=== PATIENT | male | born 1980 | race Hispanic/Latino ===

== ENCOUNTER 2016-11-21 23:56 | Emergency (ER) | payer MEDICAID ==
[2016-11-21 23:56] VITALS: BMI 28.8
[2016-11-22 00:04] VITALS: O2SAT 99
[2016-11-22 00:33] LABS: BASO # 0.1 K/uL (0.0-0.2); EOS # 0.1 K/uL (0.0-0.7); EOS % 0.9 % (0.0-4.0); HEMATOCRIT 39.5 % (35.0-51.0); LYMPH # 2.3 K/uL (1.0-4.3); LYMPH % 22.5 % (20.0-40.0); MEAN CELL VOLUME 88.6 fl (80.0-94.0); MEAN CORPUSCULAR HGB CONC 32.7 g/dL (33.0-37.0); MEAN PLATELET VOLUME 7.6 fl (7.2-11.7); MONO # 0.6 K/uL (0.0-0.8); MONO % 5.7 % (0.0-10.0); NEUT # 7.1 K/uL (1.8-7.0); NEUT % 69.9 % (50.0-75.0); RED CELL DISTRIBUTION WIDTH 14.3 % (11.5-14.5); WHITE BLOOD COUNT 10.2 K/uL (4.8-10.8)
[2016-11-22 00:42] LABS: ALB/GLOB RATIO 1.2 (1.0-2.1); ALCOHOL SERUM 22 mg/dl (0-10); ALKALINE PHOSPHATASE 79 U/L (38-126); ALT/SGPT 33 U/L (21-72); AST/SGOT 30 U/L (17-59); BILIRUBIN,TOTAL 0.4 mg/dl (0.2-1.3); BLOOD UREA NITROGEN 10 mg/dl (9-20); CALCIUM 9.9 mg/dL (8.4-10.2); CARBON DIOXIDE 22 mmol/L (22-30); CHLORIDE 105 mmol/L (98-107); GFR AFRICAN-AMERICAN > 60; GLUCOSE,RANDOM 89 mg/dL (75-110); POTASSIUM 3.9 MMOL/L (3.6-5.0); SODIUM 142 mmol/l (132-148); TOTAL PROTEIN 8.7 G/DL (6.3-8.2)
--- NOTE | 2016-11-22 01:45 | ED PDOC ---
HPI: Psych/Substance Abuse Time Seen by Provider: 11/22/16 00:04 Chief Complaint (Nursing): Substance Abuse Chief Complaint (Provider): Substance Abuse ED Caveat: Other (Substance abuse) History Per: Patient History/Exam Limitations: clinical condition (Substance abuse) Current Symptoms Are (Timing): Still Present Additional Complaint(s): Maximo Lizama, a 36 year old male patient, presents to the ED for substance abuse. The patient is well known to the ED and provider for substance abuse (PCP). History is limited due to patient's intoxicated state. Past Medical History Reviewed: Historical Data, Nursing Documentation, Vital Signs, Unable To Obtain (due to intoxicated state ) Vital Signs: Last Vital Signs Temp 97.8 F 11/22/16 00:00 Pulse 108 H 11/22/16 00:00 Resp 17 11/22/16 00:00 BP 149/86 11/22/16 00:00 Pulse Ox 99 11/22/16 00:00 - Medical History PMH: Asthma, Migraine - Family History Family History: States: Unknown Family Hx - Social History Drugs: Other (hx of PCP abuse ) - Immunization History Hx Tetanus Toxoid Vaccination: Yes - Home Medications Home Medications: Ambulatory Orders Medication Instructions Recorded Docusate [Colace] 100 mg PO BID #10 cap 04/13/16 Magnesium Citrate [Citrate of Mag] 8 oz PO DAILY PRN #1 bottle 04/13/16 - Allergies Allergies/Adverse Reactions: Allergies Allergy/AdvReac Type Severity Reaction Status Date / Time FISH Allergy SWELLING Verified 11/22/16 00:04 Fish Containing Products Allergy SWELLING Verified 11/22/16 00:04 fish derived Allergy SWELLING Verified 11/22/16 00:04 seafood Allergy SWELLING Uncoded 11/22/16 00:04 Review of Systems Review Of Systems: ROS cannot be obtained secondary to pt's inabilty to answer questions. (due to intoxication) Physical Exam - Reviewed Nursing Documentation Reviewed: Yes Vital Signs Reviewed: Yes - Physical Exam Appears: Positive for: Well, Non-toxic, No Acute Distress Head Exam: Positive for: ATRAUMATIC, NORMAL INSPECTION, NORMOCEPHALIC Skin: Positive for: Normal Color, Warm, Dry Eye Exam: Positive for: Normal appearance, EOMI, PERRL ENT: Positive for: Normal ENT Inspection Neck: Positive for: Normal, Painless ROM, Supple Cardiovascular/Chest: Positive for: Regular Rate, Rhythm. Negative for: Tachycardia Respiratory: Positive for: Normal Breath Sounds. Negative for: Wheezing, Respiratory Distress Gastrointestinal/Abdominal: Positive for: Normal Exam, Soft. Negative for: Tenderness Back: Positive for: Normal Inspection Extremity: Positive for: Normal ROM Neurologic/Psych: Positive for: Alert, Oriented - Laboratory Results Result Diagrams: 11/22/16 00:30 11/22/16 00:30 - ECG O2 Sat by Pulse Oximetry: 99 (RA) Pulse Ox Interpretation: Normal Medical Decision Making Medical Decision Makin Initial Impression: 36 year old male presents for evaluation of substance abuse Initial Plan: * Alcohol serum * CMP * Drug screen * CBC * Accucheck 0330 Patient is clinically sober and stable for discharge home. Dx: PCP abuse Condition: Stable Scribe Attestation Documented by Sayra barrios under Mikael Gallardo acting as a scribe for Kareen Camarillo MD. Provider Attestation: All medical record entries made by the Scribe were at my direction and personally dictated by me. I have reviewed the chart and agree that the record accurately reflects my personal performance of the history, physical exam, medical decision making, and the department course for this patient. I have also personally directed, reviewed, and agree with the discharge instructions and disposition. Disposition - Clinical Impression Clinical Impression: PCP (phencyclidine) abuse - Disposition Disposition: Routine/Home Disposition Time: 03:30 Condition: STABLE Instructions: Polysubstance Abuse (ED)
[2016-11-22 04:05] VITALS: BP 114/76; PULSE 71; RESP 14; TEMP 97
== END 2016-11-22 04:30 | disposition home or self-care (01) ==
LOC: H.ER 23:56
DX: F16.10 Hallucinogen abuse, uncomplicated (principal)

== ENCOUNTER 2017-01-03 04:31 | Emergency (ER) | payer MEDICAID ==
[2017-01-03 04:32] VITALS: BMI 28.8
[2017-01-03 04:49] VITALS: BP 124/73; PULSE 88; RESP 18; TEMP 97.8; O2SAT 97
--- NOTE | 2017-01-03 04:59 | ED PDOC ---
HPI: General Adult Time Seen by Provider: 01/03/17 04:47 Chief Complaint (Nursing): Dizziness/Lightheaded Chief Complaint (Provider): "don't feel right" History Per: Patient History/Exam Limitations: no limitations Onset/Duration Of Symptoms: Hrs Current Symptoms Are (Timing): Still Present Additional History Per: Patient Additional Complaint(s): 36 y/o male presents to ED with complaints of "not feeling right" x 2 hours. Patient states he was exercising when he started to feel lightheaded and generally weak. He also notes frontal headache. Denies fever, dizziness, extremity numbness/weakness, vision changes, nausea/vomiting, chest pain, shortness of breath, palpitations, abdominal pain. Patient admits to drinking earlier today, denies drug use. Past Medical History Reviewed: Historical Data, Nursing Documentation, Vital Signs Vital Signs: Last Vital Signs Temp 97.8 F 01/03/17 04:46 Pulse 88 01/03/17 04:46 Resp 18 01/03/17 04:46 BP 124/73 01/03/17 04:46 Pulse Ox 97 01/03/17 05:47 - Medical History PMH: Asthma, Migraine - Surgical History Surgical History: No Surg Hx - Family History Family History: States: Unknown Family Hx - Social History Current smoker - smoking cessation education provided: Yes Alcohol: Occasional Drugs: Denies - Immunization History Hx Tetanus Toxoid Vaccination: Yes - Home Medications Home Medications: Ambulatory Orders Medication Instructions Recorded Docusate [Colace] 100 mg PO BID #10 cap 04/13/16 Magnesium Citrate [Citrate of Mag] 8 oz PO DAILY PRN #1 bottle 04/13/16 - Allergies Allergies/Adverse Reactions: Allergies Allergy/AdvReac Type Severity Reaction Status Date / Time FISH Allergy SWELLING Verified 11/22/16 00:04 Fish Containing Products Allergy SWELLING Verified 11/22/16 00:04 fish derived Allergy SWELLING Verified 11/22/16 00:04 seafood Allergy SWELLING Uncoded 11/22/16 00:04 Review of Systems ROS Statement: Except As Marked, All Systems Reviewed And Found Negative Constitutional: Positive for: Weakness Neurological: Positive for: Headache Physical Exam - Reviewed Nursing Documentation Reviewed: Yes Vital Signs Reviewed: Yes - Physical Exam Appears: Positive for: Well, Non-toxic, No Acute Distress Head Exam: Positive for: ATRAUMATIC, NORMAL INSPECTION, NORMOCEPHALIC Skin: Positive for: Normal Color Eye Exam: Positive for: Normal appearance, EOMI, PERRL ENT: Positive for: Normal ENT Inspection Cardiovascular/Chest: Positive for: Regular Rate, Rhythm Respiratory: Positive for: Normal Breath Sounds Gastrointestinal/Abdominal: Positive for: Normal Exam Back: Positive for: Normal Inspection Extremity: Positive for: Normal ROM Neurologic/Psych: Positive for: Alert, Oriented - Laboratory Results Result Diagrams: 01/03/17 05:10 01/03/17 05:10 - ECG ECG: Positive for: Viewed By Me (reviewed by ED attending) ECG Rhythm: Positive for: Sinus Rhythm O2 Sat by Pulse Oximetry: 97 Pulse Ox Interpretation: Normal - Progress ED Course And Treament: labs, ekg, accucheck, tyleol PO accucheck 65; patient given sandwich, juice On re-eval, patient states he is feeling better. Patient educated on findings, discharged with instructions to follow up PMD. Tylenol PRN pain. Return to ED for worsening/concerning symptoms. Disposition - Clinical Impression Clinical Impression: Hypoglycemia, Polysubstance abuse, Headache - Patient ED Disposition Is Patient to be Admitted: No Counseled Patient/Family Regarding: Studies Performed, Diagnosis, Need For Followup - Disposition Referrals: Alexey Mann MD [Primary Care Provider] - Disposition: Routine/Home Disposition Time: 06:34 Condition: IMPROVED Instructions: Non-diabetic Hypoglycemia (ED), Acute Headache (ED), Polysubstance Abuse (ED)
[2017-01-03 05:26] LABS: BASO % 0.3 % (0.0-2.0); EOS % 0.3 % (0.0-4.0); HEMATOCRIT 39.9 % (35.0-51.0); LYMPH # 1.9 K/uL (1.0-4.3); LYMPH % 15.8 % (20.0-40.0); MEAN CELL VOLUME 88.6 fl (80.0-94.0); MEAN CORPUSCULAR HEMOGLOBIN 28.7 pg (27.0-31.0); MEAN CORPUSCULAR HGB CONC 32.3 g/dL (33.0-37.0); MEAN PLATELET VOLUME 7.6 fl (7.2-11.7); MONO # 0.7 K/uL (0.0-0.8); MONO % 5.5 % (0.0-10.0); NEUT # 9.3 K/uL (1.8-7.0); NEUT % 78.1 % (50.0-75.0); RED CELL DISTRIBUTION WIDTH 13.9 % (11.5-14.5); WHITE BLOOD COUNT 11.9 K/uL (4.8-10.8)
[2017-01-03 05:38] LABS: ALCOHOL SERUM 10 mg/dl (0-10); ALKALINE PHOSPHATASE 66 U/L (38-126); ALT/SGPT 32 U/L (21-72); AST/SGOT 29 U/L (17-59); BILIRUBIN,TOTAL 0.3 mg/dl (0.2-1.3); BLOOD UREA NITROGEN 11 mg/dl (9-20); CALCIUM 9.6 mg/dL (8.4-10.2); CARBON DIOXIDE 21 mmol/L (22-30); CHLORIDE 108 mmol/L (98-107); GFR AFRICAN-AMERICAN > 60; GLUCOSE,RANDOM 59 mg/dL (75-110); SODIUM 144 mmol/l (132-148); TOTAL PROTEIN 8.6 G/DL (6.3-8.2)
[2017-01-03 05:40] LABS: ALB/GLOB RATIO 1.5 (1.0-2.1)
--- NOTE | 2017-01-03 13:18 | CARD ---
APPROVED REPORT EKG Measurement Heart [id number] <Conclusion> Normal sinus rhythm Normal ECG
== END 2017-01-03 06:35 | disposition home or self-care (01) ==
LOC: H.ER 04:31
DX: E16.2 Hypoglycemia, unspecified (principal); F19.10 Other psychoactive substance abuse, uncomplicated; R51 Headache

== ENCOUNTER 2017-02-23 22:03 | Emergency (ER) | payer MEDICAID ==
[2017-02-23 22:03] VITALS: BMI 28.8
[2017-02-23 22:11] VITALS: BP 136/91; PULSE 84; RESP 16; TEMP 98.4; O2SAT 97
--- NOTE | 2017-02-23 22:40 | ED PDOC ---
HPI: Psych/Substance Abuse Time Seen by Provider: 02/23/17 22:28 Chief Complaint (Nursing): Substance Abuse Chief Complaint (Provider): Alcohol Intoxication History Per: EMS History/Exam Limitations: intoxication Additional Complaint(s): Maximo Lizama is a 36 y/o male, brought in by EMS, presenting to the ER on with alcohol intoxication. History obtained per EMS. Per EMS, patient was found visibly intoxicated on the streets. Upon arrival, he has alcohol on his breath with an unsteady gait. Offers no medical complaints at this time. Rest of HPI/ROS is limited due to the patient's state of intoxication. Past Medical History Reviewed: Historical Data, Nursing Documentation, Vital Signs Vital Signs: Last Vital Signs Temp 98.4 F 02/23/17 22:10 Pulse 84 02/23/17 22:10 Resp 16 02/23/17 22:10 BP 136/91 H 02/23/17 22:10 Pulse Ox 97 02/23/17 22:10 - Medical History PMH: Asthma, Migraine - Surgical History Surgical History: No Surg Hx - Family History Family History: States: Unknown Family Hx - Social History Current smoker - smoking cessation education provided: No Alcohol: Social Drugs: Denies - Immunization History Hx Tetanus Toxoid Vaccination: Yes - Home Medications Home Medications: Ambulatory Orders Medication Instructions Recorded Docusate [Colace] 100 mg PO BID #10 cap 04/13/16 Magnesium Citrate [Citrate of Mag] 8 oz PO DAILY PRN #1 bottle 04/13/16 - Allergies Allergies/Adverse Reactions: Allergies Allergy/AdvReac Type Severity Reaction Status Date / Time FISH Allergy SWELLING Verified 11/22/16 00:04 Fish Containing Products Allergy SWELLING Verified 11/22/16 00:04 fish derived Allergy SWELLING Verified 11/22/16 00:04 seafood Allergy SWELLING Uncoded 11/22/16 00:04 Review of Systems Review Of Systems: ROS cannot be obtained secondary to pt's inabilty to answer questions. Physical Exam - Reviewed Nursing Documentation Reviewed: Yes Vital Signs Reviewed: Yes - Physical Exam Appears: Positive for: Non-toxic, No Acute Distress Head Exam: Positive for: ATRAUMATIC, NORMOCEPHALIC Skin: Positive for: Normal Color. Negative for: Rash Eye Exam: Positive for: Normal appearance, EOMI Cardiovascular/Chest: Positive for: Regular Rate, Rhythm Respiratory: Negative for: Respiratory Distress Extremity: Positive for: Normal ROM Neurologic/Psych: Positive for: Alert, Oriented, Gait (steady) - ECG O2 Sat by Pulse Oximetry: 97 Medical Decision Making Medical Decision Makin:28 Initial Impression- Alcohol Intoxication Pt requires no treatment in the ED and is stable for routine discharge. Documented by Rashida Graves, acting as a scribe for Darnell Peters MD. All medical record entries made by the Scribe were at my direction and personally dictated by me. I have reviewed the chart and agree that the record accurately reflects my personal performance of the history, physical exam, medical decision making, and the department course for this patient. I have also personally directed, reviewed, and agree with the discharge instructions and disposition. Disposition - Clinical Impression Clinical Impression: Alcohol intoxication - Patient ED Disposition Is Patient to be Admitted: No Doctor Will See Patient In The: Office Counseled Patient/Family Regarding: Studies Performed, Diagnosis, Need For Followup - Disposition Referrals: [facility] [Outside] Disposition: Routine/Home Disposition Time: 22:41 Condition: GOOD Instructions: Alcohol Intoxication (ED)
== END 2017-02-23 23:05 | disposition home or self-care (01) ==
LOC: H.ER 22:03
DX: F10.129 Alcohol abuse with intoxication, unspecified (principal); J45.909 Unspecified asthma, uncomplicated

== ENCOUNTER 2017-03-29 00:40 | Emergency (ER) | payer MEDICAID ==
[2017-03-29 00:41] VITALS: BMI 28.8
[2017-03-29 00:58] VITALS: BP 127/79; PULSE 85; RESP 16; TEMP 98.2; O2SAT 98
--- NOTE | 2017-03-29 01:22 | ED PDOC ---
HPI: Psych/Substance Abuse Time Seen by Provider: 03/29/17 01:03 Chief Complaint (Nursing): Substance Abuse Chief Complaint (Provider): Headache ED Caveat: Intoxicated (patient admits to using PCP today) History Per: Patient History/Exam Limitations: no limitations Onset/Duration Of Symptoms: Hrs (2x weeks) Current Symptoms Are (Timing): Still Present Modifying Factor(s): Other (PCP) Severity: Moderate Associated Symptoms: Other (headache) Additional Complaint(s): 37 year old male with no pertinent medical history presents to the ED with complaints of a headache (behind his eyes) that he has had daily for the past 2x weeks. Patient admits to using PCP daily, and admits to using PCP earlier today. He states that this is not the worst headache of his life, and denies having thunderclap. He denies having chest pain, nausea, vomiting, weakness, and tingling. Patient denies having any head injuries. PMD: Tara Mann MD Past Medical History Reviewed: Historical Data, Nursing Documentation, Vital Signs Vital Signs: Last Vital Signs Temp 98.2 F 03/29/17 00:55 Pulse 85 03/29/17 00:55 Resp 16 03/29/17 00:55 BP 127/79 03/29/17 00:55 Pulse Ox 98 03/29/17 00:55 - Medical History PMH: Asthma, Migraine Denies: Chronic Kidney Disease - Surgical History Other surgeries: bowel surgery - Family History Family History: States: Unknown Family Hx - Social History Current smoker - smoking cessation education provided: Yes Drugs: Other (PCP) - Immunization History Hx Tetanus Toxoid Vaccination: Yes - Home Medications Home Medications: Ambulatory Orders Medication Instructions Recorded Docusate [Colace] 100 mg PO BID #10 cap 04/13/16 Magnesium Citrate [Citrate of Mag] 8 oz PO DAILY PRN #1 bottle 04/13/16 - Allergies Allergies/Adverse Reactions: Allergies Allergy/AdvReac Type Severity Reaction Status Date / Time FISH Allergy SWELLING Verified 11/22/16 00:04 Fish Containing Products Allergy SWELLING Verified 11/22/16 00:04 fish derived Allergy SWELLING Verified 11/22/16 00:04 seafood Allergy SWELLING Uncoded 11/22/16 00:04 Review of Systems ROS Statement: Except As Marked, All Systems Reviewed And Found Negative Cardiovascular: Negative for: Chest Pain Gastrointestinal: Negative for: Nausea, Vomiting Neurological: Positive for: Headache (2x weeks, not worst of life, dneies thunderclap). Negative for: Weakness, Numbness (tingling) Physical Exam - Reviewed Nursing Documentation Reviewed: Yes Vital Signs Reviewed: Yes - Physical Exam Appears: Positive for: Non-toxic, No Acute Distress. Negative for: Well (under the influence of drugs) Head Exam: Positive for: ATRAUMATIC, NORMOCEPHALIC Skin: Positive for: Normal Color, Warm, Dry Eye Exam: Positive for: Normal appearance Cardiovascular/Chest: Positive for: Regular Rate, Rhythm Respiratory: Positive for: Normal Breath Sounds. 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 Negative for: Motor/Sensory Deficits - ECG O2 Sat by Pulse Oximetry: 98 (RA) Pulse Ox Interpretation: Normal Medical Decision Making Medical Decision Makin:03 Initial impression: 37 year old male with drug use. Initial plan: * CT head w/o contrast * motrin tab 600 mg PO * reevaluation 1:25 Patient could not be found in ED. Patient left before treatment could be completed. Scribe Attestation: Documented by Tanna Denise, acting as a scribe for Sathish Andrade MD. Provider Scribe Attestation: All medical record entries made by the Scribe were at my direction and personally dictated by me. I have reviewed the chart and agree that the record accurately reflects my personal performance of the history, physical exam, medical decision making, and the department course for this patient. I have also personally directed, reviewed, and agree with the discharge instructions and disposition. Disposition - Clinical Impression Clinical Impression: PCP (phencyclidine) abuse - Disposition Referrals: Mann,Tara C, MD [Primary Care Provider] - Disposition: Left W/O Treatment Disposition Time: 01:25 Condition: STABLE Forms: [facility] (Ugandan)
== END 2017-03-29 01:35 | disposition left against medical advice (07) ==
LOC: H.ER 00:40
DX: F16.10 Hallucinogen abuse, uncomplicated (principal)

== ENCOUNTER 2017-05-18 02:42 | Emergency (ER) | payer MEDICAID, OTHER ==
[2017-05-18 02:43] VITALS: BMI 25.8
[2017-05-18 03:03] VITALS: BP 123/86; RESP 18; TEMP 97.2; O2SAT 98
[2017-05-18] MEDS ORDERED: Sodium Chloride 0.9% 1,000 ML IV STA (03:21)
--- NOTE | 2017-05-18 03:30 | ED PDOC ---
HPI: General Adult Time Seen by Provider: 05/18/17 02:58 Chief Complaint (Nursing): Dizziness/Lightheaded History Per: Patient Additional Complaint(s): Pt. states for >1 week he's felt dizzy. States dizziness is constant. Pt. states this is the first time he's sought medical attention for dizziness. Admits to drinking alcohol and taking PCP today. Denies chest pain, palpitations , weakness, head injury, headache, fever. Pt. was asked about his previous ED visit on 05/11/2017 for same complaint but does not recall it. Past Medical History Reviewed: Historical Data, Nursing Documentation, Vital Signs Vital Signs: Last Vital Signs Temp 97.2 F L 05/18/17 03:01 Pulse 62 05/18/17 04:01 Resp 18 05/18/17 03:01 BP 123/86 05/18/17 03:01 Pulse Ox 98 05/18/17 04:01 - Medical History PMH: Asthma, Migraine Denies: Chronic Kidney Disease - Family History Family History: States: No Known Family Hx - Immunization History Hx Tetanus Toxoid Vaccination: Yes - Home Medications Home Medications: Ambulatory Orders Medication Instructions Recorded Docusate [Colace] 100 mg PO BID #10 cap 04/13/16 Magnesium Citrate [Citrate of Mag] 8 oz PO DAILY PRN #1 bottle 04/13/16 - Allergies Allergies/Adverse Reactions: Allergies Allergy/AdvReac Type Severity Reaction Status Date / Time FISH Allergy SWELLING Verified 05/11/17 04:52 Fish Containing Products Allergy SWELLING Verified 05/11/17 04:52 fish derived Allergy SWELLING Verified 05/11/17 04:52 seafood Allergy SWELLING Uncoded 05/11/17 04:52 Review of Systems ROS Statement: Except As Marked, All Systems Reviewed And Found Negative Neurological: Positive for: Dizziness Physical Exam - Reviewed Nursing Documentation Reviewed: Yes Vital Signs Reviewed: Yes - Physical Exam Appears: Positive for: Well, Non-toxic, No Acute Distress Head Exam: Positive for: ATRAUMATIC, NORMAL INSPECTION, NORMOCEPHALIC Skin: Positive for: Normal Color, Warm. Negative for: Rash Eye Exam: Positive for: EOMI, Normal appearance, PERRL ENT: Positive for: Normal ENT Inspection Neck: Positive for: Normal, Painless ROM Cardiovascular/Chest: Positive for: Regular Rate, Rhythm Respiratory: Positive for: CNT, Normal Breath Sounds Gastrointestinal/Abdominal: Positive for: Normal Exam, Soft. Negative for: Tenderness Back: Positive for: Normal Inspection Extremity: Positive for: Normal ROM Neurologic/Psych: Positive for: Alert, Oriented. Negative for: Aphasia, Facial Droop - Laboratory Results Result Diagrams: 05/18/17 05:00 05/18/17 05:00 - ECG ECG: Positive for: Interpreted By Me ECG Rhythm: Positive for: Sinus Rhythm. Negative for: ST/T Changes Rate: 62 O2 Sat by Pulse Oximetry: 98 - Progress ED Course And Treament: Labs ordered. EKG ordered. IV NS bolus ordered. On re-evaluation, pt. informed of results. States dizziness has improved. Gait steady unassisted. Disposition - Clinical Impression Clinical Impression: Substance abuse - Patient ED Disposition Is Patient to be Admitted: No - Disposition Disposition: Routine/Home Disposition Time: 05:30 Condition: STABLE Forms: [employer] (Mongolian)
[2017-05-18 04:02] VITALS: PULSE 62
[2017-05-18 05:12] LABS: BASO % 0.6 % (0.0-2.0); EOS # 0.1 K/uL (0.0-0.7); EOS % 0.8 % (0.0-4.0); HEMATOCRIT 38.4 % (35.0-51.0); LYMPH # 2.4 K/uL (1.0-4.3); LYMPH % 28.4 % (20.0-40.0); MEAN CELL VOLUME 88.5 fl (80.0-94.0); MEAN CORPUSCULAR HEMOGLOBIN 29.4 pg (27.0-31.0); MEAN CORPUSCULAR HGB CONC 33.2 g/dL (33.0-37.0); MEAN PLATELET VOLUME 8.1 fl (7.2-11.7); MONO # 0.4 K/uL (0.0-0.8); MONO % 5.1 % (0.0-10.0); NEUT # 5.6 K/uL (1.8-7.0); NEUT % 65.1 % (50.0-75.0); RED CELL DISTRIBUTION WIDTH 13.2 % (11.5-14.5); WHITE BLOOD COUNT 8.5 K/uL (4.8-10.8)
[2017-05-18 05:52] LABS: ALB/GLOB RATIO 1.4 (1.0-2.1); ALCOHOL SERUM < 10 mg/dl (0-10); ALKALINE PHOSPHATASE 55 U/L (38-126); ALT/SGPT 50 U/L (21-72); AST/SGOT 34 U/L (17-59); BILIRUBIN,TOTAL 0.2 mg/dl (0.2-1.3); BLOOD UREA NITROGEN 10 mg/dl (9-20); CALCIUM 9.4 mg/dL (8.4-10.2); CARBON DIOXIDE 24 mmol/L (22-30); CHLORIDE 108 mmol/L (98-107); GFR AFRICAN-AMERICAN > 60; GLUCOSE,RANDOM 80 mg/dL (75-110); POTASSIUM 3.9 MMOL/L (3.6-5.0); SODIUM 146 mmol/l (132-148)
--- NOTE | 2017-05-18 08:18 | CARD ---
APPROVED REPORT EKG Measurement Heart [id number] [id number] <Conclusion> Normal sinus rhythm Normal ECG
== END 2017-05-18 05:45 | disposition home or self-care (01) ==
LOC: H.ER 02:42
DX: F16.10 Hallucinogen abuse, uncomplicated (principal); F10.10 Alcohol abuse, uncomplicated
CPT/HCPCS: 80053; 80320; 80324; 80345; 80346; 80349; 80353; 80358; 80361; 83992; 85025; 93005; 96360; 99282; J7040

== ENCOUNTER 2017-07-12 18:05 | Emergency (ER) | payer MEDICAID ==
[2017-07-12 18:05] VITALS: BMI 25.8
[2017-07-12 18:14] VITALS: RESP 18
[2017-07-12] MEDS ORDERED: Sodium Chloride 0.9% 1,000 ML IV STA (18:21)
--- NOTE | 2017-07-12 18:31 | ED PDOC ---
HPI: CCC, URI, Sore Throat Time Seen by Provider: 07/12/17 18:16 Chief Complaint (Nursing): Flu-like Symptoms Chief Complaint (Provider): Flu Like Symptoms History Per: Patient History/Exam Limitations: no limitations Onset/Duration Of Symptoms: Days (x3) Current Symptoms Are (Timing): Still Present Location Of Pain: Other (abdomen) Associated Symptoms: Fever, Chills, Sore Throat, Cough, Sputum Ear Symptoms: Bilateral: None Additional Complaint(s): Maximo Lizama, a 37 year old male, with a past medical history of asthma presents to the ED for flu like symptoms. The patient reports that 3 days ago he deleoped fever, chills, body aches, abdominal pain, cough productive of sputum. PMD: Walt Cardenas Past Medical History Reviewed: Historical Data, Nursing Documentation, Vital Signs Vital Signs: Last Vital Signs Temp 98.1 F 07/12/17 19:41 Pulse 103 H 07/12/17 19:41 Resp 18 07/12/17 19:41 BP 129/78 07/12/17 19:41 Pulse Ox 97 07/12/17 19:41 - Medical History PMH: Asthma, Migraine Denies: Chronic Kidney Disease - Family History Family History: States: Unknown Family Hx - Social History Current smoker - smoking cessation education provided: Yes (Light Smoker < 10 Cigarettes Daily) Ex-Smoker (has not smoked in the last 12 months): Yes Alcohol: Other Drugs: Other (PCP) - Immunization History Hx Tetanus Toxoid Vaccination: Yes - Home Medications Home Medications: Ambulatory Orders Medication Instructions Recorded Docusate [Colace] 100 mg PO BID #10 cap 04/13/16 Magnesium Citrate [Citrate of Mag] 8 oz PO DAILY PRN #1 bottle 04/13/16 Oseltamivir Phosphate [Tamiflu] 75 mg PO BID #10 capsule 07/12/17 - Allergies Allergies/Adverse Reactions: Allergies Allergy/AdvReac Type Severity Reaction Status Date / Time FISH Allergy SWELLING Verified 05/11/17 04:52 Fish Containing Products Allergy SWELLING Verified 05/11/17 04:52 fish derived Allergy SWELLING Verified 05/11/17 04:52 seafood Allergy SWELLING Uncoded 05/11/17 04:52 Review of Systems ROS Statement: Except As Marked, All Systems Reviewed And Found Negative Constitutional: Positive for: Fever, Chills ENT: Positive for: Throat Pain Respiratory: Positive for: Cough (cough productive of sputum) Gastrointestinal: Positive for: Abdominal Pain Physical Exam - Reviewed Nursing Documentation Reviewed: Yes Vital Signs Reviewed: Yes - Physical Exam Appears: Positive for: No Acute Distress. Negative for: Well Head Exam: Positive for: ATRAUMATIC, NORMAL INSPECTION, NORMOCEPHALIC Skin: Positive for: Warm (febrile), Dry, Pallor. Negative for: Normal Color Eye Exam: Positive for: Normal appearance, EOMI, PERRL. Negative for: Nystagmus ENT: Positive for: Normal ENT Inspection, TM Is/Are (normal). Negative for: Nasal Congestion, Tonsillar Exudate, Tonsillar Swelling Cardiovascular/Chest: Negative for: Regular Rate, Rhythm (Heart rate 133) Respiratory: Positive for: Normal Breath Sounds (lungs clear). Negative for: Wheezing, Respiratory Distress Neurologic/Psych: Positive for: Alert, Oriented - ECG O2 Sat by Pulse Oximetry: 98 (RA) Pulse Ox Interpretation: Normal - Radiology X-Ray: Interpreted by Me, Read By Radiologist X-Ray Interpretation: No Acute Disease - Progress Re-evaluation Time: 19:52 Condition: Improved Medical Decision Making Medical Decision Makin Initial Impression 37 y/o male presenting with the flu Initial Plan: * CXR * Motrin Tab 660mg PO * NS 1000 ml IV 1000 mls/hr * Influenza A B * Reevalution Due to patient's heart rate IV fluids were intiated 07/12/17 18:28 Influenza Typ A,B (EIA) Negative for flu a/b 1950 PT improved in ER. VS improved and Pt looks well wants to go home to rest. pt d/c on tamiflu with f.u with pmd pt showing s/s of influenza. Temp Pulse Resp BP Pulse Ox 98.1 F 103 H 18 129/78 97 07/12/17 19:41 07/12/17 19:41 07/12/17 19:41 07/12/17 19:41 07/12/17 19:41 Vital Signs - 24 hr 07/12/17 07/12/17 07/12/17 18:13 18:51 19:41 Temperature 101.0 F H 98.1 F Pulse Rate 133 H 103 H Respiratory 18 18 Rate Blood Pressure 144/91 H 129/78 O2 Sat by Pulse 98 98 97 Oximetry Scribe Attestation Documented by Sayra Richardson acting as a scribe for Lisset Dunn PA-C. Scribe Attestation All medical record entries made by the Scribe were at my direction and personally dictated by me. I have reviewed the chart and agree that the record accurately reflects my personal performance of the history, physical exam, medical decision making, and the department course for this patient. I have also personally directed, reviewed, and agree with the discharge instructions and disposition. Disposition - Clinical Impression Clinical Impression: Influenza-like symptoms - Patient ED Disposition Is Patient to be Admitted: No Counseled Patient/Family Regarding: Studies Performed, Diagnosis, Need For Followup, Rx Given - Disposition Disposition: Routine/Home Disposition Time: 19:53 Condition: STABLE Prescriptions: Oseltamivir Phosphate [Tamiflu] 75 mg PO BID #10 capsule Instructions: Influenza (ED) Forms: [facility] ED School/Work Excuse
--- NOTE | 2017-07-12 18:35 | RAD ---
HISTORY: Cough COMPARISON: 05/24/2016 TECHNIQUE: Chest PA and lateral FINDINGS: LUNGS: No active pulmonary disease. PLEURA: No significant pleural effusion identified. No pneumothorax apparent. CARDIOVASCULAR: Normal. OSSEOUS STRUCTURES: No significant abnormalities. VISUALIZED UPPER ABDOMEN: Normal. OTHER FINDINGS: None. IMPRESSION: No active disease. No significant interval change compared to the prior examination(s).
[2017-07-12 19:42] VITALS: BP 129/78; PULSE 103; TEMP 98.1
[2017-07-12 19:54] VITALS: O2SAT 98
== END 2017-07-12 20:05 | disposition home or self-care (01) ==
LOC: H.ER 18:05
DX: R50.9 Fever, unspecified (principal); J02.9 Acute pharyngitis, unspecified; R05 Cough; J45.909 Unspecified asthma, uncomplicated; F17.210 Nicotine dependence, cigarettes, uncomplicated; R50.81 Fever presenting with conditions classified elsewhere
CPT/HCPCS: 71020; 87804; 96360; 99282; J7040

== ENCOUNTER 2017-07-15 01:46 | Emergency (ER) | payer MEDICAID ==
[2017-07-15 01:46] VITALS: BMI 25.8
--- NOTE | 2017-07-15 02:09 | ED PDOC ---
HPI: General Adult Time Seen by Provider: 07/15/17 02:07 Chief Complaint (Provider): headache, PCP use History Per: Patient Additional Complaint(s): 37 year old presents with mild headache that started right after he smoked PCP just prior to arrival. Patient rates headache pain as 5/10. He denies dizziness, nausea, or vision changes. He also admits to having a couple of drinks and smoking marijuana. Past Medical History Reviewed: Historical Data, Nursing Documentation, Vital Signs Vital Signs: Last Vital Signs Temp 97.8 F 07/15/17 02:07 Pulse 123 H 07/15/17 02:07 Resp 18 07/15/17 02:07 BP 121/91 H 07/15/17 02:07 Pulse Ox 98 07/15/17 02:07 - Medical History PMH: Asthma, Migraine - Family History Family History: States: No Known Family Hx - Living Arrangements Living Arrangements: With Family - Social History Current smoker - smoking cessation education provided: Yes Alcohol: Social Drugs: Cannabis, Other (PCP) - Immunization History Hx Tetanus Toxoid Vaccination: Yes - Home Medications Home Medications: Ambulatory Orders Medication Instructions Recorded Docusate [Colace] 100 mg PO BID #10 cap 04/13/16 Magnesium Citrate [Citrate of Mag] 8 oz PO DAILY PRN #1 bottle 04/13/16 Oseltamivir Phosphate [Tamiflu] 75 mg PO BID #10 capsule 07/12/17 - Allergies Allergies/Adverse Reactions: Allergies Allergy/AdvReac Type Severity Reaction Status Date / Time FISH Allergy SWELLING Verified 05/11/17 04:52 Fish Containing Products Allergy SWELLING Verified 05/11/17 04:52 fish derived Allergy SWELLING Verified 05/11/17 04:52 seafood Allergy SWELLING Uncoded 05/11/17 04:52 Review of Systems ROS Statement: Except As Marked, All Systems Reviewed And Found Negative Constitutional: Negative for: Fever Gastrointestinal: Negative for: Nausea, Vomiting Neurological: Positive for: Headache. Negative for: Dizziness Psych: Positive for: Other (PCP use) Physical Exam - Reviewed Nursing Documentation Reviewed: Yes Vital Signs Reviewed: Yes - Physical Exam Appears: Positive for: Well, Non-toxic, No Acute Distress Skin: Negative for: Rash Eye Exam: Positive for: EOMI, PERRL Cardiovascular/Chest: Positive for: Regular Rate, Rhythm Respiratory: Positive for: Normal Breath Sounds Neurologic/Psych: Positive for: Alert, Oriented, Gait (steady) - ECG O2 Sat by Pulse Oximetry: 98 Pulse Ox Interpretation: Normal Medical Decision Making Medical Decision Making: Impression: substance abuse and etoh use Plan: PO tylenol and motrin Patient feels better after meds given, headache resolved. Disposition - Clinical Impression Clinical Impression: Substance abuse, Alcohol use, Headache - Patient ED Disposition Is Patient to be Admitted: No Counseled Patient/Family Regarding: Diagnosis, Need For Followup - Disposition Referrals: [facility] [Outside] Disposition: Routine/Home Disposition Time: 02:55 Condition: STABLE Additional Instructions: Stop using drugs. Tylenol or motrin for headache as needed. Follow up with primary care doctor or with clinic as needed. Instructions: At-Risk Alcohol Use (ED), Polysubstance Abuse (ED), General Headache (ED)
[2017-07-15 02:12] VITALS: BP 121/91; PULSE 123; RESP 18; TEMP 97.8; O2SAT 98
== END 2017-07-15 03:30 | disposition home or self-care (01) ==
LOC: H.ER 01:46
DX: F16.10 Hallucinogen abuse, uncomplicated (principal); R51 Headache

== ENCOUNTER 2017-07-22 13:31 | Emergency (ER) | payer MEDICAID ==
[2017-07-22 13:32] VITALS: BMI 25.8
[2017-07-22 13:53] VITALS: BP 135/98; TEMP 98; O2SAT 98
--- NOTE | 2017-07-22 14:51 | ED PDOC ---
HPI: Psych/Substance Abuse Time Seen by Provider: 07/22/17 13:59 Chief Complaint (Nursing): Substance Abuse Chief Complaint (Provider): Substance Abuse History Per: Patient History/Exam Limitations: no limitations Onset/Duration Of Symptoms: Days (x1) Current Symptoms Are (Timing): Still Present Additional Complaint(s): 37 year old male presents to the emergency department for evaluation of substance abuse. Patient reports he was at a libertarian last night, drank multiple beverages, and also took an unknown pill. Later he was told it was scar. He now complains hes not feeling like himself. Denies any chest pain, shortness of breath, or other physical complaint. No auditory/visual hallucinations, suicidal or homicidal ideation. PMD: None provided Past Medical History Reviewed: Historical Data, Nursing Documentation, Vital Signs Vital Signs: Last Vital Signs Temp 98.0 F 07/22/17 13:51 Pulse 120 H 07/22/17 13:51 Resp 16 07/22/17 13:51 BP 135/98 H 07/22/17 13:51 Pulse Ox 98 07/22/17 13:51 - Medical History PMH: Asthma, Migraine - Surgical History Other surgeries: Chest/Neck surgery during childhood - Family History Family History: States: Unknown Family Hx - Social History Current smoker - smoking cessation education provided: Yes Alcohol: Social Drugs: Cannabis, Other (PCP) - Immunization History Hx Tetanus Toxoid Vaccination: Yes - Home Medications Home Medications: Ambulatory Orders Medication Instructions Recorded Docusate [Colace] 100 mg PO BID #10 cap 04/13/16 Magnesium Citrate [Citrate of Mag] 8 oz PO DAILY PRN #1 bottle 04/13/16 Oseltamivir Phosphate [Tamiflu] 75 mg PO BID #10 capsule 07/12/17 - Allergies Allergies/Adverse Reactions: Allergies Allergy/AdvReac Type Severity Reaction Status Date / Time FISH Allergy SWELLING Verified 05/11/17 04:52 Fish Containing Products Allergy SWELLING Verified 05/11/17 04:52 fish derived Allergy SWELLING Verified 05/11/17 04:52 seafood Allergy SWELLING Uncoded 05/11/17 04:52 Review of Systems ROS Statement: Except As Marked, All Systems Reviewed And Found Negative Constitutional: Negative for: Fever Cardiovascular: Negative for: Chest Pain Respiratory: Negative for: Shortness of Breath Psych: Negative for: Suicidal ideation (or homicidal), Other (A/V hallucination) Physical Exam - Reviewed Nursing Documentation Reviewed: Yes Vital Signs Reviewed: Yes - Physical Exam Appears: Positive for: Well, Non-toxic, No Acute Distress Head Exam: Positive for: ATRAUMATIC, NORMOCEPHALIC Skin: Positive for: Normal Color, Warm, Dry Eye Exam: Positive for: EOMI, Normal appearance, PERRL Neck: Positive for: Normal, Painless ROM, Supple Cardiovascular/Chest: Positive for: Regular Rate, Rhythm. Negative for: Murmur Respiratory: Positive for: Normal Breath Sounds. Negative for: Accessory Muscle Use, Respiratory Distress Pulses-Radial (L): 2+ Pulses-Radial (R): 2+ Gastrointestinal/Abdominal: Positive for: Normal Exam, Soft. Negative for: Tenderness Back: Positive for: Normal Inspection. Negative for: Vertebral Tenderness Extremity: Positive for: Normal ROM, Capillary Refill (< 2 sec). Negative for: Pedal Edema, Deformity Neurologic/Psych: Positive for: Alert, Oriented (x3). Negative for: Motor/ Sensory Deficits - ECG O2 Sat by Pulse Oximetry: 98 (RA) Pulse Ox Interpretation: Normal Medical Decision Making Medical Decision Making: Time: 14:44 Initial Impression: Substance abuse Initial Plan: * ED urine dipstick * Urine drug screen * Alcohol serum * Pending reevaluation Labs reviewed, positive for phencyclidine. Time: 16:00 Upon provider reevaluation, patient is medically stable for discharge. Counseled regarding diagnosis and need for follow up. There is agreement to discharge plan. Return if symptoms persist or worsen. Clinical Impression: PCP use disorder Scribe Attestation: Documented by Tiff Beal, acting as a scribe for Yesika Askew MD Provider Scribe Attestation: All medical record entries made by the Scribe were at my direction and personally dictated by me. I have reviewed the chart and agree that the record accurately reflects my personal performance of the history, physical exam, medical decision making, and the department course for this patient. I have also personally directed, reviewed, and agree with the discharge instructions and disposition. Disposition - Clinical Impression Clinical Impression: Phencyclidine (PCP) use disorder, mild - Patient ED Disposition Is Patient to be Admitted: No Counseled Patient/Family Regarding: Studies Performed, Diagnosis, Need For Followup - Disposition Referrals: [facility] [Outside] Disposition: Routine/Home Disposition Time: 16:00 Condition: STABLE Instructions: Polysubstance Abuse (ED) Forms: [email or web address] (Kyrgyz)
[2017-07-22 16:01] LABS: BARBITURATES, UR NEGATIVE (NEGATIVE); BENZODIAZEPINES, UR NEGATIVE (NEGATIVE); OPIATES, UR NEGATIVE (NEGATIVE)
[2017-07-22 16:09] LABS: PHENCYCLIDINE, UR POSITIVE (NEGATIVE)
[2017-07-22 16:18] VITALS: PULSE 100; RESP 20
== END 2017-07-22 16:16 | disposition home or self-care (01) ==
LOC: H.ER 13:31
DX: F19.10 Other psychoactive substance abuse, uncomplicated (principal); J45.909 Unspecified asthma, uncomplicated; F17.200 Nicotine dependence, unspecified, uncomplicated

== ENCOUNTER 2017-10-25 02:12 | Emergency (ER) | payer MEDICAID ==
[2017-10-25 02:13] VITALS: BMI 25.8
[2017-10-25 02:34] VITALS: RESP 16
--- NOTE | 2017-10-25 04:28 | ED PDOC ---
"HPI: Psych/Substance Abuse Time Seen by Provider: 10/25/17 02:32 Chief Complaint (Nursing): Dizziness/Lightheaded Chief Complaint (Provider): head injury and alcohol intoxication History/Exam Limitations: no limitations Onset/Duration Of Symptoms: Days (last night) Modifying Factor(s): Alcohol Additional Complaint(s): 37 year old male with a past medical history of substance abuse and ETOH abuse presents to the ED complaining of a head injury. Report he drank alcohol and took Flexeril last night. His friends told him he had passed out. Denies taking any drugs. Patient is requesting CT scan. PMD: No Family Provider Past Medical History Reviewed: Historical Data, Nursing Documentation, Vital Signs Vital Signs: Last Vital Signs Temp 97.8 F 10/25/17 02:30 Pulse 99 H 10/25/17 02:30 Resp 16 10/25/17 02:30 BP 114/83 10/25/17 02:30 Pulse Ox 97 10/25/17 02:30 - Medical History PMH: Asthma, Migraine, Schizophrenia Denies: Chronic Kidney Disease - Family History Family History: States: Unknown Family Hx - Immunization History Hx Tetanus Toxoid Vaccination: Yes - Home Medications Home Medications: Ambulatory Orders Medication Instructions Recorded Docusate [Colace] 100 mg PO BID #10 cap 04/13/16 Magnesium Citrate [Citrate of Mag] 8 oz PO DAILY PRN #1 bottle 04/13/16 Oseltamivir Phosphate [Tamiflu] 75 mg PO BID #10 capsule 07/12/17 - Allergies Allergies/Adverse Reactions: Allergies Allergy/AdvReac Type Severity Reaction Status Date / Time FISH Allergy SWELLING Verified 05/11/17 04:52 Fish Containing Products Allergy SWELLING Verified 05/11/17 04:52 fish derived Allergy SWELLING Verified 05/11/17 04:52 seafood Allergy SWELLING Uncoded 05/11/17 04:52 Review of Systems ROS Statement: Except As Marked, All Systems Reviewed And Found Negative Neurological: Positive for: Other (head injury) Psych: Negative for: Suicidal ideation (homicidal ideation) Physical Exam - Reviewed Nursing Documentation Reviewed: Yes Vital Signs Reviewed: Yes - Physical Exam Appears: Positive for: Well, Non-toxic, No Acute Distress Head Exam: Positive for: ATRAUMATIC, NORMAL INSPECTION, NORMOCEPHALIC Skin: Positive for: Normal Color, Warm, Dry Eye Exam: Positive for: EOMI, Normal appearance, PERRL ENT: Positive for: Normal ENT Inspection Neck: Positive for: Normal, Painless ROM, Supple. Negative for: Decreased ROM Cardiovascular/Chest: Positive for: Regular Rate, Rhythm. Negative for: Murmur Respiratory: Positive for: Normal Breath Sounds. Negative for: Decreased Breath Sounds, Accessory Muscle Use, Respiratory Distress Gastrointestinal/Abdominal: Positive for: Normal Exam, Bowel Sounds, Soft. Negative for: Tenderness, Guarding, Rebound Extremity: Positive for: Normal ROM. Negative for: Tenderness, Pedal Edema, Deformity Neurologic/Psych: Positive for: Alert, Oriented (x3), Motor/Sensory Deficits ( motor and sensation intact) - ECG O2 Sat by Pulse Oximetry: 97 (RA) Pulse Ox Interpretation: Normal Medical Decision Making Medical Decision Making: Time: 309 Impression: Intoxicated patient with head injury, but patient is alert and oriented x3, requesting head Ct -explained to patient dangers of repeated exposure to radiation, however patient requesting CT, also intoxicated and purporting that he had head injury today, although there are no signs of trauma -given complaint, will get head CT Initial Plan: --Head w/o contrast [CT] --Alcohol serum --Glucose, Blood, POC --Reevaluation 5AM EXAM: US , Transvaginal EXAM DATE/TIME: 10/25/2017 12:08 AM CLINICAL HISTORY: 21 years old, female; Pain; complicated by abdominal or pelvic pain; Lower; First trimester; Gestational age or lmp: 09/25/2017; ; Additional info: Preg, pelvic pain TECHNIQUE: Real-time transvaginal obstetrical ultrasound of the maternal pelvis and a first trimester with image documentation. Transvaginal imaging was used for better evaluation of the fetus and adnexa. COMPARISON: There are no prior studies for comparison. FINDINGS: Gestation: There is no intrauterine gestation. Uterus/: Uterus measures approximately 9 x 5 x 5 cm. Endometrium measures 17.5 mm in width. Ovaries: Right ovary measures 3.5 x 1.6 x 2.5 cm. Left ovary measures 1.6 x 1.1 x 1.3 cm.There is expected blood flow on Doppler imaging Free fluid: There is no free fluid. Adnexa: There are no adnexal masses Bladder: Bladder is not evaluated. IMPRESSION: No intrauterine or ectopic gestation identified, no adnexal masses COLON, LAURNEA | Preliminary Radiology Report ELECTRICAL REPAIRER (QA) DISCREPANCY? If there is a discrepancy between the preliminary and final interpretation, please notify [facility] via [email or web address]. If you do not have access to our QA portal, call our QA team at [phone] CONFIDENTIALITY STATEMENT This report is intended only for the use of the referring physician, and only in accordance with law, If you received this in error, call [phone] Page 2 of 2 Correlation with serial beta-hCG levels and followup sonography advised Thank you for allowing us to participate in the care of your patient. Dictated and Authenticated by: Marcela Jimenez MD 10/25/2017 1:58 AM Eastern Time ([place] & [place]) Patient is more sober, awake, alert with steady gait. Will d/c home. PAtient has followup scheduled with neurologist. Adivsed on dangers of drinking with muscle relaxants on board. Scribe Attestation: Documented by Nu Johnson, acting as a scribe for Sathish Andrade MD Provider Scribe Attestation: All medical record entries made by the Scribe were at my direction and personally dictated by me. I have reviewed the chart and agree that the record accurately reflects my personal performance of the history, physical exam, medical decision making, and the department course for this patient. I have also personally directed, reviewed, and agree with the discharge instructions and disposition. Disposition - Clinical Impression Clinical Impression: Head injury, Dizziness, Alcohol use - Disposition Referrals: [facility] [Outside] Disposition: Routine/Home Disposition Time: 04:58 Condition: IMPROVED Instructions: Alcohol Use - When Is Drinking a Problem?, Closed Head Injury Forms: [employer] (Swedish)"
[2017-10-25 05:52] VITALS: BP 112/74; PULSE 92; TEMP 97.9; O2SAT 98
--- NOTE | 2017-10-25 07:01 | CT ---
PROCEDURE: CT HEAD WITHOUT CONTRAST. HISTORY: Head injury. COMPARISON: 05/24/2016 TECHNIQUE: Axial computed tomography images were obtained through the head/brain without intravenous contrast. Radiation dose: Total exam DLP = 810 mGy-cm. This CT exam was performed using one or more of the following dose reduction techniques: Automated exposure control, adjustment of the mA and/or kV according to patient size, and/or use of iterative reconstruction technique. FINDINGS: HEMORRHAGE: No intracranial hemorrhage. BRAIN: Focal areas of encephalomalacia seen within the anterior left frontal lobe as well as the inferior right frontal lobe, likely not significantly changed since the prior study although at the level of the inferior right frontal lobe evaluation on the prior study was limited secondary prominent streak artifact. VENTRICLES: Unremarkable. No hydrocephalus. CALVARIUM: Unremarkable. PARANASAL SINUSES: Unremarkable as visualized. No significant inflammatory changes. MASTOID AIR CELLS: Unremarkable as visualized. No inflammatory changes. OTHER FINDINGS: None. IMPRESSION: Focal areas of encephalomalacia seen within the anterior left frontal lobe as well as the inferior right frontal lobe, likely not significantly changed since the prior study although at the level of the inferior right frontal lobe evaluation on the prior study was limited secondary prominent streak artifact. No acute intracranial abnormality. If symptoms persists, consider further evaluation with MRI. These findings were preliminarily reported at 4:53 a.m. on 10/25/[address] Glenn Sal from [employer].
== END 2017-10-25 05:52 | disposition home or self-care (01) ==
LOC: H.ER 02:12
DX: F10.129 Alcohol abuse with intoxication, unspecified (principal); S09.90XA Unspecified injury of head, initial encounter; Y92.89 Other specified places as the place of occurrence of the external cause; F20.9 Schizophrenia, unspecified; R42 Dizziness and giddiness

== ENCOUNTER 2017-12-06 00:04 | Emergency (ER) | payer MEDICAID ==
[2017-12-06 00:04] VITALS: BMI 25.8
[2017-12-06 00:18] VITALS: RESP 18
--- NOTE | 2017-12-06 00:41 | ED PDOC ---
HPI: Psych/Substance Abuse Time Seen by Provider: 12/06/17 00:17 Chief Complaint (Nursing): Headache Chief Complaint (Provider): Dizziness History Per: Patient History/Exam Limitations: no limitations Onset/Duration Of Symptoms: Hrs (today) Current Symptoms Are (Timing): Still Present Suicide/Self Injury Attempted (Context): None Involuntary Hold By: None Additional Complaint(s): Maximo Lizama is a 37 year old male, with a past history of PCP and marijuana use, who presents to the emergency department complaining of dizziness onset today. Patient is well known to provider for multiple visits for same complaints. Patient has a history of bed seeking behavior. No further medical complaints. PMD: None provided. Past Medical History Reviewed: Historical Data, Nursing Documentation, Vital Signs Vital Signs: Last Vital Signs Temp 99.1 F 12/06/17 00:16 Pulse 118 H 12/06/17 00:16 Resp 18 12/06/17 00:16 BP 148/92 H 12/06/17 00:16 Pulse Ox 95 12/06/17 00:16 - Medical History PMH: Asthma, Migraine, Schizophrenia Denies: Chronic Kidney Disease - Surgical History Surgical History: No Surg Hx - Family History Family History: States: Unknown Family Hx - Social History Drugs: Cannabis, Other (PCP) - Immunization History Hx Tetanus Toxoid Vaccination: Yes - Home Medications Home Medications: Ambulatory Orders Medication Instructions Recorded Docusate [Colace] 100 mg PO BID #10 cap 04/13/16 Magnesium Citrate [Citrate of Mag] 8 oz PO DAILY PRN #1 bottle 04/13/16 Oseltamivir Phosphate [Tamiflu] 75 mg PO BID #10 capsule 07/12/17 - Allergies Allergies/Adverse Reactions: Allergies Allergy/AdvReac Type Severity Reaction Status Date / Time FISH Allergy SWELLING Verified 12/06/17 00:15 Fish Containing Products Allergy SWELLING Verified 05/11/17 04:52 fish derived Allergy SWELLING Verified 05/11/17 04:52 seafood Allergy SWELLING Uncoded 05/11/17 04:52 Review of Systems ROS Statement: Except As Marked, All Systems Reviewed And Found Negative Neurological: Positive for: Dizziness Physical Exam - Reviewed Nursing Documentation Reviewed: Yes Vital Signs Reviewed: Yes - Physical Exam Appears: Positive for: Non-toxic, No Acute Distress Head Exam: Positive for: ATRAUMATIC, NORMOCEPHALIC Skin: Positive for: Normal Color, Warm, Dry Eye Exam: Positive for: Normal appearance, EOMI, PERRL ENT: Positive for: Normal ENT Inspection Neck: Positive for: Painless ROM Cardiovascular/Chest: Positive for: Regular Rate, Rhythm. Negative for: Murmur Respiratory: Positive for: Normal Breath Sounds. Negative for: Respiratory Distress Gastrointestinal/Abdominal: Positive for: Normal Exam, Soft. Negative for: Tenderness Back: Positive for: Normal Inspection. Negative for: L CVA Tenderness, R CVA Tenderness, Vertebral Tenderness Extremity: Positive for: Normal ROM (upper and lower extremities). Negative for : Deformity, Swelling Neurologic/Psych: Positive for: Alert (somnolent but arousable ), Other ( slurred speech) - Laboratory Results Result Diagrams: 12/06/17 01:10 12/06/17 01:10 - ECG O2 Sat by Pulse Oximetry: 95 (RA) Pulse Ox Interpretation: Normal Medical Decision Making Medical Decision Making: Initial Impression: 37 y/o male intoxicated Initial Plan: --EKG --Alcohol serum --CMP --Drug screen, urine --CBC w/ differential --Accucheck --Reevaluation 6AM Labs reviewed show no clinically significant abnlties Patient stable for discharge home Dx PCP abuse ----- Scribe Attestation: Documented by Dawit Vaughn, acting as a scribe for Gera Mathur MD. Provider Scribe Attestation: All medical record entries made by the Scribe were at my direction and personally dictated by me. I have reviewed the chart and agree that the record accurately reflects my personal performance of the history, physical exam, medical decision making, and the department course for this patient. I have also personally directed, reviewed, and agree with the discharge instructions and disposition. Disposition - Clinical Impression Clinical Impression: PCP abuse - Disposition Disposition: Routine/Home Disposition Time: 06:00 Condition: STABLE Instructions: Drug Abuse Treatment Forms: [email or web address] (Sinhala)
[2017-12-06 01:33] LABS: BASO % 0.4 % (0.0-2.0); EOS % 0.3 % (0.0-4.0); HEMOGLOBIN 13.1 g/dL (12.0-18.0); LYMPH # 2.1 K/uL (1.0-4.3); LYMPH % 23.4 % (20.0-40.0); MEAN CELL VOLUME 86.8 fl (80.0-94.0); MEAN CORPUSCULAR HEMOGLOBIN 29.4 pg (27.0-31.0); MEAN CORPUSCULAR HGB CONC 33.9 g/dL (33.0-37.0); MEAN PLATELET VOLUME 7.8 fl (7.2-11.7); MONO # 0.4 K/uL (0.0-0.8); MONO % 4.7 % (0.0-10.0); NEUT # 6.4 K/uL (1.8-7.0); NEUT % 71.2 % (50.0-75.0); RBC 4.45 Mil/uL (4.40-5.90); RED CELL DISTRIBUTION WIDTH 13.2 % (11.5-14.5)
[2017-12-06 01:40] LABS: ALB/GLOB RATIO 1.4 (1.0-2.1); ALBUMIN 4.8 g/dL (3.5-5.0); ALT/SGPT 33 U/L (21-72); AST/SGOT 26 U/L (17-59); BLOOD UREA NITROGEN 11 mg/dl (9-20); CALCIUM 9.9 mg/dL (8.4-10.2); GFR AFRICAN-AMERICAN > 60; GFR NON-AFRICAN AMERICAN > 60
[2017-12-06 06:40] VITALS: BP 126/86; PULSE 79; TEMP 98.6; O2SAT 96
--- NOTE | 2017-12-07 10:39 | CARD ---
APPROVED REPORT EKG Measurement Heart [id number] <Conclusion> Sinus tachycardia Otherwise normal ECG
== END 2017-12-06 06:40 | disposition home or self-care (01) ==
LOC: H.ER 00:04
DX: F16.10 Hallucinogen abuse, uncomplicated (principal); F12.90 Cannabis use, unspecified, uncomplicated; F20.9 Schizophrenia, unspecified; J45.909 Unspecified asthma, uncomplicated

== ENCOUNTER 2017-12-22 03:02 | Emergency (ER) | payer MEDICAID ==
[2017-12-22 03:02] VITALS: BMI 25.8
[2017-12-22 03:39] VITALS: TEMP 97.5; O2SAT 98
[2017-12-22] MEDS ORDERED: Multivitamin (MVI) 10 ML, Thiamine 100 MG, Folic Acid 1 MG in Dextrose 5%/0.45% NS 1,00... IV ONE (04:04)
[2017-12-22 04:39] LABS: BASO % 0.5 % (0.0-2.0); EOS # 0.1 K/uL (0.0-0.7); EOS % 1.1 % (0.0-4.0); LYMPH # 2.4 K/uL (1.0-4.3); LYMPH % 35.9 % (20.0-40.0); MEAN CELL VOLUME 87.2 fl (80.0-94.0); MEAN CORPUSCULAR HEMOGLOBIN 29.7 pg (27.0-31.0); MEAN PLATELET VOLUME 7.6 fl (7.2-11.7); MONO # 0.4 K/uL (0.0-0.8); NEUT # 3.7 K/uL (1.8-7.0); NEUT % 56.5 % (50.0-75.0); RBC 4.06 Mil/uL (4.40-5.90); RED CELL DISTRIBUTION WIDTH 13.8 % (11.5-14.5); WHITE BLOOD COUNT 6.6 K/uL (4.8-10.8)
[2017-12-22 04:46] LABS: ALB/GLOB RATIO 1.3 (1.0-2.1); ALBUMIN 4.1 g/dL (3.5-5.0); ALT/SGPT 28 U/L (21-72); AST/SGOT 29 U/L (17-59); BLOOD UREA NITROGEN 9 mg/dl (9-20); CALCIUM 8.6 mg/dL (8.4-10.2); GFR AFRICAN-AMERICAN > 60; GFR NON-AFRICAN AMERICAN > 60
--- NOTE | 2017-12-22 05:10 | ED PDOC ---
HPI: Psych/Substance Abuse Time Seen by Provider: 12/22/17 03:28 Chief Complaint (Nursing): Alcohol Ingestion Chief Complaint (Provider): Alcohol Ingestion History Per: Patient History/Exam Limitations: no limitations Onset/Duration Of Symptoms: Hrs Current Symptoms Are (Timing): Still Present Modifying Factor(s): Alcohol Additional Complaint(s): Maximo Lizama is a 37 year old male with a past medical history of migraines, asthma, and schizophrenia is presenting to the ED for evaluation of alcohol intoxication associated with nausea and abdominal discomfort, onset earlier tonight. Patient admits to drinking tonight. He denies any diarrhea, fever, headache, head trauma, or injury. Patient also mentions that he has lesions to his right and left frontal lobes. He has had numerous CT scans completed and experiences chronic dizziness. He states that he was following with up with a neurologist, and today is requesting at CT scan. Patient offers no other medical complaints at this time. PMD: none provided Past Medical History Reviewed: Historical Data, Nursing Documentation, Vital Signs Vital Signs: Last Vital Signs Temp 97.5 F L 12/22/17 03:35 Pulse 69 12/22/17 03:35 Resp 16 12/22/17 03:35 BP 122/77 12/22/17 03:35 Pulse Ox 98 12/22/17 03:35 - Medical History PMH: Asthma, Migraine, Schizophrenia Denies: Chronic Kidney Disease - Surgical History Surgical History: No Surg Hx - Family History Family History: States: Unknown Family Hx - Social History Current smoker - smoking cessation education provided: Yes Alcohol: Other (currently intoxicated) Drugs: Cannabis, Other (PCP) - Immunization History Hx Tetanus Toxoid Vaccination: Yes - Home Medications Home Medications: Ambulatory Orders Medication Instructions Recorded Docusate [Colace] 100 mg PO BID #10 cap 04/13/16 Magnesium Citrate [Citrate of Mag] 8 oz PO DAILY PRN #1 bottle 04/13/16 Oseltamivir Phosphate [Tamiflu] 75 mg PO BID #10 capsule 07/12/17 - Allergies Allergies/Adverse Reactions: Allergies Allergy/AdvReac Type Severity Reaction Status Date / Time FISH Allergy SWELLING Verified 12/06/17 00:15 Fish Containing Products Allergy SWELLING Verified 05/11/17 04:52 fish derived Allergy SWELLING Verified 05/11/17 04:52 seafood Allergy SWELLING Uncoded 05/11/17 04:52 Review of Systems ROS Statement: Except As Marked, All Systems Reviewed And Found Negative Constitutional: Negative for: Fever Gastrointestinal: Positive for: Nausea, Abdominal Pain. Negative for: Diarrhea Neurological: Negative for: Headache, Other (head trauma) Physical Exam - Reviewed Nursing Documentation Reviewed: Yes Vital Signs Reviewed: Yes - Physical Exam Comments: GENERAL APPEARANCE: Patient is awake, alert, oriented x 3, in no acute distress. SKIN: Warm, dry; (-) cyanosis HEAD: (-) scalp swelling, (-) scalp tenderness. EYES: (-) conjunctival pallor, (-) scleral icterus, (-) nystagmus. ENMT: Mucous membranes dry. Airway patent: (-) stridor. NECK: (-) tenderness, (-) stiffness, (-) lymphadenopathy. CHEST AND RESPIRATORY: (-) rales, (-) rhonchi, (-) wheezes; breath sounds equal. ABDOMEN: Soft, (-) distention, (-) tenderness, (-) guarding. NEURO AND PSYCH: Mental status as above. Affect: normal. child care leader: Intact. Pupils equal and reactive; EOMI; (-) facial asymmetry; tongue and uvula midline. Strength symmetric. - Laboratory Results Result Diagrams: 12/22/17 04:30 12/22/17 04:30 - ECG O2 Sat by Pulse Oximetry: 98 (RA) Pulse Ox Interpretation: Normal Medical Decision Making Medical Decision Making: Previous records reviewed were reviewed. 3 CT scans were completed in this ED since 2016, with the most recent on October 25 2017, the CT Head from that visit revealed : Focal areas of encephalomalacia seen within the anterior left frontal lobe as well as the inferior right frontal lobe, likely not significantly changed since the prior study although at the level of the inferior right frontal lobe evaluation on the prior study was limited secondary prominent streak artifact. No acute intracranial abnormality. Time: 4:30 Plan: --Alcohol Serum --CMP --Drug Screen --CBC --Glucose, POC --Dextrose 1,000 ml IV --Zofran 4 mg IVP Labs reviewed: potassium level = 3.3, alcohol level 212. Patient given KCL PO. Reevaluation: Patient is no longer nauseous and denies any abdominal pain. He states nausea has resolved and is speaking in full sentences. Abdomen remains soft and non-tender. Repeat neuro exam shows no focal findings. No tremors, no slurred speech and a steady gait. Advised to follow up with primary care physician or referral provided in 1-2 days without fail. Return to the emergency room at any time for any new or worsening symptoms. Patient states he fully agrees with and understands discharge instructions. States that he agrees with the plan and disposition. Verbalized and repeated discharge instructions and plan. I have given the patient opportunity to ask any additional questions. Scribe Attestation: Documented by, Candis Cueto acting as a scribe for Deborah Orlando PA-C. Provider Scribe Attestation: All medical record entries made by the Scribe were at my direction and personally dictated by me. I have reviewed the chart and agree that the record accurately reflects my personal performance of the history, physical exam, medical decision making, and the department course for this patient. I have also personally directed, reviewed, and agree with the discharge instructions and disposition. Disposition - Clinical Impression Clinical Impression: Alcohol intoxication - Patient ED Disposition Is Patient to be Admitted: No Counseled Patient/Family Regarding: Studies Performed, Diagnosis, Need For Followup - Disposition Referrals: Miguelangel Pat MD [Medical Doctor] - [facility] [Outside] Disposition: Routine/Home Disposition Time: 06:00 Condition: STABLE Additional Instructions: Thank you for letting us take care of you today. You were treated for alcohol intoxication. The emergency medical care you received today was directed at your acute symptoms. Return to the Emergency Department if your symptoms worsen , do not improve, or if you have any other problems. Please contact your doctor in 2 days for re-evaluation and follow up / or call one of the physicians/clinics you have been referred to that are listed on the Patient Visit Information form that is included in your discharge packet. Bring any paperwork you were given at discharge with you along with any medications you are taking to your follow up visit. Our treatment cannot replace ongoing medical care by a primary care provider (PCP) outside of the emergency department. Thank you for allowing the [facility] team to be part of your care today. Instructions: Alcohol Abuse and Alcoholism (DC) Forms: [employer] (Dutch) - PA / SHELLFISH DREDGE OPERATOR / Resident Statement MD/DO has reviewed & agrees with the documentation as recorded.
[2017-12-22] MEDS ORDERED: Potassium Chloride 20 mEq/15 ml LIQ UD PO ONE (05:33)
[2017-12-22] MEDS ORDERED: Potassium Chloride 20 mEq ER Tab PO ONE (05:35)
[2017-12-22 05:51] VITALS: BP 110/64; PULSE 72; RESP 20
== END 2017-12-22 06:03 | disposition home or self-care (01) ==
LOC: H.ER 03:02
DX: F10.129 Alcohol abuse with intoxication, unspecified (principal); F17.200 Nicotine dependence, unspecified, uncomplicated; F20.9 Schizophrenia, unspecified; J45.909 Unspecified asthma, uncomplicated
CPT/HCPCS: 80053; 80320; 82948; 85025; 96365; 96366; 96375; 99283; J2405; J3411; J7042

== ENCOUNTER 2018-02-01 05:33 | Emergency (ER) | payer MEDICAID ==
[2018-02-01 05:34] VITALS: BMI 25.8
[2018-02-01 05:54] VITALS: TEMP 98.1
--- NOTE | 2018-02-01 06:07 | ED PDOC ---
Syncope/Near Syncope/Dizziness Time Seen by Provider: 02/01/18 05:56 Chief Complaint (Nursing): Dizziness/Lightheaded Chief Complaint (Provider): Dizziness/Lightheaded History Per: Patient History/Exam Limitations: no limitations Onset/Duration Of Symptoms: Hrs Current Symptoms Are (Timing): Still Present Additional Complaint(s): Maximo Lizama is a 37 year old male, with a past history of PCP and marijuana use, who presents to the emergency department complaining of dizziness onset today. Patient is well known to provider for multiple visits for same complaints. Patient has a history of bed seeking behavior. No further medical complaints. PMD: None provided Past Medical History Reviewed: Historical Data, Nursing Documentation, Vital Signs Vital Signs: Last Vital Signs Temp 98.1 F 02/01/18 05:52 Pulse 107 H 02/01/18 05:52 Resp 18 02/01/18 05:52 BP 139/88 02/01/18 05:52 Pulse Ox 96 02/01/18 05:52 - Medical History PMH: Asthma, Migraine, Schizophrenia Denies: Chronic Kidney Disease - Surgical History Surgical History: No Surg Hx - Family History Family History: States: Unknown Family Hx - Immunization History Hx Tetanus Toxoid Vaccination: Yes - Home Medications Home Medications: Ambulatory Orders Medication Instructions Recorded Docusate [Colace] 100 mg PO BID #10 cap 04/13/16 Magnesium Citrate [Citrate of Mag] 8 oz PO DAILY PRN #1 bottle 04/13/16 Oseltamivir Phosphate [Tamiflu] 75 mg PO BID #10 capsule 07/12/17 - Allergies Allergies/Adverse Reactions: Allergies Allergy/AdvReac Type Severity Reaction Status Date / Time FISH Allergy SWELLING Verified 12/06/17 00:15 Fish Containing Products Allergy SWELLING Verified 05/11/17 04:52 fish derived Allergy SWELLING Verified 05/11/17 04:52 seafood Allergy SWELLING Uncoded 05/11/17 04:52 Review of Systems ROS Statement: Except As Marked, All Systems Reviewed And Found Negative Neurological: Positive for: Dizziness Physical Exam - Reviewed Nursing Documentation Reviewed: Yes Vital Signs Reviewed: Yes - Physical Exam Appears: Positive for: Non-toxic, No Acute Distress Head Exam: Positive for: ATRAUMATIC, NORMAL INSPECTION, NORMOCEPHALIC Skin: Positive for: Normal Color, Warm, Dry Eye Exam: Positive for: EOMI, Normal appearance, PERRL Neck: Positive for: Normal, Painless ROM, Supple Cardiovascular/Chest: Positive for: Regular Rate, Rhythm. Negative for: Murmur Respiratory: Positive for: Normal Breath Sounds. Negative for: Respiratory Distress Gastrointestinal/Abdominal: Positive for: Normal Exam, Soft Extremity: Positive for: Normal ROM. Negative for: Deformity Neurologic/Psych: Positive for: Alert, Oriented. Negative for: Motor/Sensory Deficits - ECG O2 Sat by Pulse Oximetry: 96 (RA) Pulse Ox Interpretation: Normal Medical Decision Making Medical Decision Making: Time: 06:45 Patient requires no further treatment in the ED at this time. Patient has steady gait and clear speech. He is stable and will be discharged home. Follow up with PMD in 1-2 days without fail. Return to the ED if symptoms persist or worsen. Diagnosis is polysubstance abuse. ---- Scribe Attestation: Documented by Sara Duffy, acting as a scribe for Gera Mathur MD Provider Scribe Attestation: All medical record entries made by the Scribe were at my direction and personally dictated by me. I have reviewed the chart and agree that the record accurately reflects my personal performance of the history, physical exam, medical decision making, and the department course for this patient. I have also personally directed, reviewed, and agree with the discharge instructions and disposition. Disposition - Clinical Impression Clinical Impression: Polysubstance abuse - Patient ED Disposition Is Patient to be Admitted: No - Disposition Disposition: Routine/Home Disposition Time: 06:45 Condition: STABLE Instructions: Polysubstance Abuse Forms: [employer] (Namibian)
[2018-02-01 07:01] VITALS: BP 132/85; PULSE 89; RESP 17; O2SAT 98
== END 2018-02-01 07:01 | disposition home or self-care (01) ==
LOC: H.ER 05:33
DX: F19.10 Other psychoactive substance abuse, uncomplicated (principal); F20.9 Schizophrenia, unspecified

== ENCOUNTER 2018-04-15 03:48 | Emergency (ER) | payer MEDICAID ==
[2018-04-04 20:43] VITALS: BMI 25.8
--- NOTE | 2018-04-15 07:07 | ED PDOC ---
HPI: Headache Time Seen by Provider: 04/15/18 07:04 History Per: Patient History/Exam Limitations: no limitations Onset/Duration Of Symptoms: Days Current Symptoms Are (Timing): Still Present Additional Complaint(s): Maximo Lizama, a year old male with past medical history of alcohol abuse, presents to the emergency room for headache and dizziness ongoing for months. Patient states he is seeing Dr. Beaulieu and outpatient services have been scheduled including a prescription for MRI he was requesting. He denies SI/HI, numbness, weakness, tingling. Patient states his headache is non thunderclap or radiating and has had multiple CTs for similar. Admits to alcohol use tonight. Denie sinjury. Past Medical History Reviewed: Historical Data, Nursing Documentation, Vital Signs - Medical History PMH: Anxiety, Asthma, Bipolar Disorder, Depression, Migraine, Post Traumatic Stress Disorder, Schizophrenia Denies: Chronic Kidney Disease - Family History Family History: States: Unknown Family Hx - Immunization History Hx Tetanus Toxoid Vaccination: Yes - Home Medications Home Medications: Ambulatory Orders Medication Instructions Recorded Docusate [Colace] 100 mg PO BID #10 cap 04/13/16 Magnesium Citrate [Citrate of Mag] 8 oz PO DAILY PRN #1 bottle 04/13/16 Oseltamivir Phosphate [Tamiflu] 75 mg PO BID #10 capsule 07/12/17 - Allergies Allergies/Adverse Reactions: Allergies Allergy/AdvReac Type Severity Reaction Status Date / Time FISH Allergy SWELLING Verified 12/06/17 00:15 Fish Containing Products Allergy SWELLING Verified 05/11/17 04:52 fish derived Allergy SWELLING Verified 05/11/17 04:52 seafood Allergy SWELLING Uncoded 05/11/17 04:52 Review of Systems ROS Statement: Except As Marked, All Systems Reviewed And Found Negative Neurological: Positive for: Headache, Dizziness Physical Exam - Reviewed Nursing Documentation Reviewed: Yes Vital Signs Reviewed: Yes - Physical Exam Appears: Positive for: Well (Intoxicated Appearing), Non-toxic, No Acute Distress Head Exam: Positive for: ATRAUMATIC, NORMAL INSPECTION, NORMOCEPHALIC Skin: Positive for: Normal Color, Warm, DRY Eye Exam: Positive for: EOMI, Normal appearance, PERRL ENT: Positive for: Normal ENT Inspection Neck: Positive for: Normal, Painless ROM Cardiovascular/Chest: Positive for: Regular Rate, Rhythm Respiratory: Positive for: CNT, Normal Breath Sounds Gastrointestinal/Abdominal: Positive for: Normal Exam, Soft Back: Positive for: Normal Inspection Extremity: Positive for: Normal ROM Neurologic/Psych: Positive for: Alert, platen press feeder II-XII, Oriented, Mood/Affect (Normal), Cerebellar Tests (Normal), Gait (Normal). Negative for: Motor/Sensory Deficits, Aphasia, Facial Droop Medical Decision Making Medical Decision Makin38 year old male presenting with chronic headache and dizziness, explained to patient current symptoms dont warrant an emergency MRI in ED, patient has scheduled outpatient services with Dr. Beaulieu and is strongly advised to follow up with him, referral information for MRI in [place] given Disposition - Clinical Impression Clinical Impression: Headache - Patient ED Disposition Is Patient to be Admitted: No - Disposition Referrals: Kandi Huggins APN [Primary Care Provider] - Disposition: Routine/Home Disposition Time: 04:30 Condition: STABLE
== END 2018-04-15 08:47 | disposition home or self-care (01) ==
LOC: H.ER 03:48
DX: R51 Headache (principal); Z86.59 Personal history of other mental and behavioral disorders; F43.10 Post-traumatic stress disorder, unspecified; J45.909 Unspecified asthma, uncomplicated